=== PATIENT | male | born 1985 | race Caucasian/White ===

== ENCOUNTER 2018-09-01 14:13 | Emergency (ER) | payer BC, SELFPAY ==
[2018-09-01 14:14] VITALS: BP 137/65; PULSE 50; RESP 16; TEMP 36.6; BMI 23.3
--- NOTE | 2018-09-01 14:58 | ED.DCSUM_ITS ---
History of Present Illness Chief Complaint: Laceration Informant: Patient Onset: Today Current Severity: Mild Narrative: Left index finger laceration indicates he struck his finger with pipe against another hard object suffered laceration the tip of the index finger he is right- handed tetanus up-to-date no numbness weakness paresthesias Past Medical History - Allergies and Home Meds Allergies/Adverse Reactions: Allergies No Known Allergies Allergy (Verified 09/01/18 14:14) Primary Care Physician: NOT,DEFINED [Primary Care Provider] - Past Medical History: None Smoking Status: Unknown if ever smoked Review of Systems General: Denies: Chills, Fever, Sweats Eyes: Denies: Visual changes - bilaterally, Diplopia ENT: Denies: Rhinorrhea, Sore throat Cardiovascular: Denies: Chest pain, Palpitations Respiratory: Denies: Dyspnea, Cough, Dyspnea on exertion Gastrointestinal: Denies: Abdominal pain, Nausea, Vomiting, Diarrhea, Melena, Hematochezia Genitourinary: Denies: Dysuria, Hematuria, Frequency Musculoskeletal: Denies: Back pain, Extremity Pain Skin: Denies: Rash, Wounds Neurological: Denies: Headache, Weakness, Numbness Physical Exam Vital Signs/Narrative: Vital Signs Temp Pulse Resp BP 09/01/18 14:14 97.9 F 50 L 16 137/65 H Extremities: - - He has a curvilinear laceration to the tip of the left index finger the skin is intact that distal tissue was pink the nail nailbed are intact DIP PIP MCP joint function normal the hand function otherwise normal, the laceration was sterilely prepped copious irrigated with local visual lidocaine block and then closed with nylon with good results no foreign body was appreciated, we recommend recommended x-ray of the patient but to look for fracture in the concept that would be open fracture complicated healing indicates he is having no pain over any of the bony prominences of his fingers he does not wish to have x-ray done Diagnostic/Tx/Re-eval - Medical Decision Making Given all the above he is instructed on wound care sutures in 7 to 10 days and he will return for change in symptoms fingertip brace applied Home stable Final impression 2 cm laceration tip left index finger ED Disposition - Plan for ED Patient: Diagnosis: Laceration of hand Instructions: LACERATION, Hand Referrals: NOT,DEFINED [Primary Care Provider] -
[2018-09-01 15:35] VITALS: BP 114/72; PULSE 61; RESP 17
== END 2018-09-01 15:35 | disposition home or self-care (01) ==
LOC: ED 15:54
PROVIDERS: Emergency Provider Emergency Medicine; Family Provider Internal Medicine; PCP Internal Medicine
DX: S61.211A Laceration without foreign body of left index finger without damage to nail, initial encounter (principal); W22.8XXA Striking against or struck by other objects, initial encounter; Y93.9 Activity, unspecified; Y92.9 Unspecified place or not applicable; Y99.9 Unspecified external cause status
CPT/HCPCS: 12001; 99282